=== PATIENT | female | born 1960 | race Caucasian/White ===

== ENCOUNTER 2019-09-13 16:05 | Inpatient (IN) | payer BC ==
[~2019-09-13] VITALS: Ht 170.2 cm; Wt 69.1 kg
[2019-09-13 17:05] LABS: BASOPHILS 0.2 % (0-2); EOSINOPHILS 0.3 % (0-7); HEMATOCRIT 37.7 % (36.0-48.0); HEMOGLOBIN 12.5 g/dL (12-16); IMMATURE GRANULOCYTES 0.2 % (0-5); LYMPHOCYTES 19.7 % (15-50); MCH 29.8 pg (26.0-34.0); MCHC 33.2 g/dL (31.0-37.0); MCV 89.8 fL (80.0-100.0); MEAN PLATELET VOLUME 9.9 fL (7.4-10.4); MONOCYTES 5.8 % (2-11); NEUTROPHILS 73.8 % (40-80); PLATELET COUNT 294 10x3/uL (130-400); RDW 12.7 % (11.5-14.5); WBC 12.8 10x3/uL (4.8-10.8)
[2019-09-13 17:17] LABS: CALC OSMOLALITY 272 mosm/kg (275-300); CALCIUM 9.1 mg/dL (8.5-10.1); CARBON DIOXIDE 28.2 mmol/L (21.0-32.0); CHLORIDE - SERUM 99 mmol/L (98-107); CREATININE - SERUM 0.8 mg/dL (0.6-1.3); GLUCOSE 107 mg/dL (74-106); POTASSIUM - SERUM 4.1 mmol/L (3.5-5.1); SODIUM 137 mmol/L (136-145); UREA NITROGEN 11 mg/dL (7-18); eGFR NON AFRICAN AMERICAN 78 mL/min (90-120)
[2019-09-13 17:24] LABS: ALBUMIN 3.7 g/dL (3.4-5.0); ALKALINE PHOSPHATASE 92 U/L (46-116); ALT (SGPT) 24 U/L (10-68); BILIRUBIN - TOTAL 0.22 mg/dL (0.2-1.3); PROTEIN - SERUM 7.8 g/dL (6.4-8.2)
--- NOTE | 2019-09-13 18:30 | NUR ---
FLU SWAB OBTAINED AND SENT TO THE LAB.
--- NOTE | 2019-09-13 19:30 | NUR ---
URINE SENT TO THE LAB.
[2019-09-13 19:56] LABS: APPEARANCE CLEAR (CLEAR); BILIRUBIN NEGATIVE (NEGATIVE); COLOR YELLOW (YELLOW); EPITHELIAL CELLS 0-5 /hpf (0-5); GLUCOSE NEGATIVE (NEGATIVE); KETONE SMALL mg/dL (NEGATIVE); NITRITE NEGATIVE (NEGATIVE); PROTEIN NEGATIVE (NEGATIVE); RED CELLS - URINE 0-5 /hpf (0-5); UROBILINOGEN NORMAL (NORMAL); WHITE CELLS - URINE 0-5 /hpf (NEGATIVE)
--- NOTE | 2019-09-13 22:20 | NUR ---
ADDED PATIENT TO TELE WAIT LIST
[2019-09-13 22:53] VITALS: BP 122/49; Ht 170.2 cm; Wt 69.1 kg
[2019-09-13] MEDS ORDERED: LEVOFLOXACIN500 MG PO (22:59)
[2019-09-14] VITALS: BP 106/59
[2019-09-14 00:21] VITALS: BP 117/68
[2019-09-14 05:08] VITALS: BP 119/63
[2019-09-14 05:37] LABS: CALC OSMOLALITY 282 mosm/kg (275-300); CARBON DIOXIDE 23.8 mmol/L (21.0-32.0); CHLORIDE - SERUM 105 mmol/L (98-107); CREATININE - SERUM 0.7 mg/dL (0.6-1.3); GLUCOSE 149 mg/dL (74-106); MAGNESIUM - SERUM 2.3 mg/dL (1.8-2.4); PHOSPHOROUS 3.8 mg/dL (2.5-4.9); POTASSIUM - SERUM 4.1 mmol/L (3.5-5.1); SODIUM 141 mmol/L (136-145); UREA NITROGEN 11 mg/dL (7-18); eGFR NON AFRICAN AMERICAN > 90 mL/min (90-120)
[2019-09-14 05:53] LABS: BASOPHILS 0 % (0-2); EOSINOPHILS 0 % (0-7); HEMOGLOBIN 11.4 g/dL (12-16); IMMATURE GRANULOCYTES 0.1 % (0-5); LYMPHOCYTES 11.9 % (15-50); MCH 29.1 pg (26.0-34.0); MCHC 32.6 g/dL (31.0-37.0); MCV 89.3 fL (80.0-100.0); MEAN PLATELET VOLUME 10.2 fL (7.4-10.4); PLATELET COUNT 275 10x3/uL (130-400); RBC 3.92 10x6/uL (4.00-5.40); RDW 12.8 % (11.5-14.5)
[2019-09-14 05:54] LABS: WBC 7.1 10x3/uL (4.8-10.8)
--- NOTE | 2019-09-14 07:44 | NUR ---
PATIENT RECIEVED RESTING IN BED WITH EYES OPEN, ALERT AND ORIENTED. ADMITTED FOR PNEUMONIA, RESPIRTATIONS REGULAR AND NON-LABORED BUT PATINET REPORTS SOME SHORTNESS OF BREATH WITH EXERTION. PREPORTS INFREQUENT DRY COUGH. CL IN REACH
[2019-09-14 08:23] VITALS: BP 122/69
--- NOTE | 2019-09-14 09:06 | NUR ---
TB SKIN TEST ADMINISTERED TO RIGHT FOREARM
[2019-09-14 12:29] VITALS: BP 131/70
[2019-09-14 17:08] VITALS: BP 115/66
--- NOTE | 2019-09-14 19:27 | NUR ---
PATIENT RESTING IN BED ON PHONE AND DENIES NEEDS AT THIS TIME. BED IN LOWEST POSITION AND CALL LIGHT WITHIN REACH. ENCOURAGED THE PATIENT TO CALL IF SHE HAS NEEDS. WILL CONTINUE TO MONITOR.
--- NOTE | 2019-09-14 23:38 | NUR ---
ADMINISTERED MEDS PER ORDERS. PATIENT REFUSED MIDNIGHT VITALS. PATIENT DENIES OTHER NEEDS AT THIS TIME. BED IN LOWEST POSITION AND CALL LIGHT WITHIN REACH. ENCOURAGED THE PATIENT TO CALL IF SHE HAS NEEDS. WILL CONTINUE TO MONITOR.
[2019-09-15 04:00] VITALS: BP 145/72
--- NOTE | 2019-09-15 07:44 | HP ---
PATIENT: PACO MONTES MEDICAL RECORD: [id number] ACCOUNT: [id number] LOCATION:[facility] [id number] : [birth year] ADMISSION DATE: 09/13/19 PCP: No PCP HISTORY AND PHYSICAL EXAMINATION REASON FOR ADMISSION: Cough, congestion, and fevers. HISTORY OF PRESENT ILLNESS: The patient is a 59-year-old female who states that she has had a sore throat and congestion, starting 09/03/2019. She ultimately went to an outpatient clinic in [place] 2 days prior to admission, she developed fever of 100.8 and increasing cough, congestion. They had taken a chest x-ray that did not give her the results and did not start antibiotics. She felt worse through the weekend with increasing cough, productive sputum, and fever to 101 and came to the ED for that reason. She is a breast cancer survivor and was concerned there might be something in her chest x-ray related to that. She denies diarrhea, nausea, or vomiting. She admits to some sharp pain in her right posterior chest with coughing. PAST MEDICAL HISTORY: Breast cancer in 2007, status post left lumpectomy and then bilateral mastectomy and reconstruction. She deferred tamoxifen at that time. No other medical history. PAST SURGICAL HISTORY: She had T and A, TAA-BSO, left lumpectomy breast with bilateral mastectomy and reconstruction. ALLERGIES: None mentioned except for Compazine. SOCIAL HISTORY: Nonsmoker, nondrinker. 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 FAMILY HISTORY: Father from lung cancer, had diabetes. Mother has had some skin cancers and essential hypertension. She has living one sister in good health. HOME MEDICATIONS: None. REVIEW OF SYSTEMS: CONSTITUTIONAL: Low-grade fever as mentioned above and fatigue and poor appetite. HEENT: No recent visual change, sinus congestion, or sore throat. RESPIRATORY: Expiratory cough and also sputum production. No hemoptysis. She has been mildly dyspneic on exertion. Pleuritic type pain, right posterior chest as well. GASTROINTESTINAL: No nausea, vomiting, change in stools or blood per rectum. He had colonoscopy recently, which she reports as normal. MUSCULOSKELETAL: No arthralgias. GENITOURINARY: No dysuria or incontinence. GYNECOLOGICAL: No vaginal bleeding. PSYCHIATRIC: Denies depressed mood. NEUROLOGICAL: No known history stroke, TIA, vascular headaches, or seizures. PHYSICAL EXAMINATION: GENERAL: Alert 59-year-old female in no acute distress except for coughing. The patient is alert and oriented. VITAL SIGNS: Temperature is 100.8 Fahrenheit orally, up to 101, heart rate is HISTORY AND PHYSICAL [id number] PACO MONTES 100, blood pressure of 112/74, respirations 18, and sat 95% on room air. HEENT: Eyes are clear. NECK: Supple, without bruits or masses. CHEST: She has fine crackles in the bases, right greater than left. Wheezes in the upper lobes on forced expiration. BREASTS: Symmetrical implants. ABDOMEN: Soft, nontender. No organomegaly. GENITOURINARY: Deferred. EXTREMITIES: No CC&E. NEUROLOGIC: Oriented to person, place, and time. Cranial nerves intact. Gait normal. INTEGUMENT: No rash. LABORATORY DATA: Shows a normal BMP and Liver functions are normal. Lactate is 1.0. White count 12.8 thousand with left shift. H and H is 12.5 and 37.7 respectively, and platelet count is 294,000. Chest x-ray showed granulomatous changes bilaterally. She has bilateral apical scarring. She has faint alveolar densities in the right middle lobe and bilateral bases suggesting pneumonia. ASSESSMENT: 1. Community-acquired pneumonia. 2. Granulomatous lung disease. 3. History of breast cancer. PLAN: The patient will be admitted for IV antibiotics. Cultures are appropriate. Pulmonary toilet. Further workup pending clinical course. TRANSINT:[id number] Voice Confirmation ID: [id number] DOCUMENT ID: [id number] BRANDON AMADOR MD at 0744 CC: [id number] DICTATION DATE: 09/14/19719 PEDIATRIC PHYSICIAN: 09/14/19 0828 ADM IN [facility] [address] [place] [address]
--- NOTE | 2019-09-15 07:56 | NUR ---
PATIENT RECIEVED RESTING IN BED, ALERT ORIENTED, DENIES PAIN OR SHORTNESS OF BREATH. NON-PRODUCTIVE COUGH REPORTED. CL IN REACH
[2019-09-15 08:30] VITALS: BP 178/87
--- NOTE | 2019-09-15 09:35 | MORECARE ---
CASE MANAGEMENT DISCHARGE SUMMARY PATIENT: PACO MONTES UNIT: [id number] ADM DATE: 09/13/19 AGE: 59 : 64 SEX: F ROOM/BED: D.0776 AUTHOR: EVELYN SMITH PHYSICIAN: REFERRING PHYSICIAN: BRANDON AMADOR MD DATE OF SERVICE: 09/15/19 Discharge Plan Patient Name: PACO MONTES Facility: [facility]:[place] : 1960 Planned Disposition: Home or Self Care Anticipated Discharge Date: Discharge Date: Expected LOS: Initial Reviewer: [email or web address] Initial Review Date: 09/13/2019 Generated: 09/15/19 10:35 am Comments DCP- Discharge Planning Updated by [email or web address]: Angelica Castaneda on 09/15/19 8:[address] Patient Name: PACO MONTES Admission Status: ER Accout number: [id number] Admission Date: 09-13-2019 : 1960 Admission Diagnosis: Attending: BRANDON AMDAOR Current LOS: 2 Anticipated DC Date: Planned Disposition: Home or Self Care Primary Insurance: [employer] O Discharge Planning Comments: CM met with patient to complete initial dc planning assessment. CM educated patient on the CM role and verbal consent given by patient to complete assessment. Patient lives in [place], [place] where she is independent with her care. At discharge patient plans to return home and feels this is a safe discharge. CM discussed availability of home health, rehab services, and medical equipment. She stated that her fianc? 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 Patient denied known discharge needs at this time. CM will continue to follow and will assist as needed with dc plans/needs. Reinforcing Bar Setter: Angelica Castaneda DCPIA - Discharge Planning Initial Assessment Updated by [email or web address]: Angelica Castaneda on 09/15/19 9:31 am * Is the patient Alert and Oriented? Yes * How many steps to enter\exit or inside your home? * PCP croatian * [facility] * Preadmission Environment Home Alone * ADLs Independent * Equipment None * List name and contact numbers for known caregivers / representatives who currently or will assist patient after discharge: SILVA HAMILTON [phone] * Verbal permission to speak to the caregivers and representatives has been obtained from the patient. N/A * Community resources currently utilized None * Additional services required to return to the preadmission environment? No * Can the patient safely return to the preadmission environment? Yes * Has this patient been hospitalized within the prior 30 days at any hospital? No Patient Name: PACO MONTES Page [id number] at 0935 All edits/amendments must be made on the electronic document DICTATION DATE: 09/15/19934 LAUNCH ENGINEER: HERMINIA 09/15/19934 RPT#: [id number] DC DATE: STATUS: ADM IN [facility] [address] [place] [address] END OF REPORT
[2019-09-15 12:48] VITALS: BP 174/85
[2019-09-15 16:43] VITALS: BP 140/65
--- NOTE | 2019-09-15 18:10 | NUR ---
PATIENT RESTING IN BED WITH NO NEEDS VOICED. CL IN REACH
--- NOTE | 2019-09-15 19:30 | NUR ---
PT SITTING UP IN BED WITHOUT DISTRESS, AOX4. IV RIGHT FA SL, FLUSHES EASILY. DENIES NEEDS AT THIS TIME. CL IN REACH, WILL CTM
[2019-09-15 20:00] VITALS: BP 150/82
[2019-09-16] VITALS: BP 133/43
[2019-09-16 04:00] VITALS: BP 111/56
[2019-09-16] MEDS ORDERED: ZITHROMAX250 MG PO (07:25)
[2019-09-16] MEDS ORDERED: ROBITUSSIN AC (WITH PO (07:25)
[2019-09-16] MEDS ORDERED: LEVAQUIN750 MG PO (07:26)
--- NOTE | 2019-09-16 08:27 | NUR ---
resting in bed, no distress noted, anxious to d/c today, sl in place
[2019-09-16 08:39] VITALS: BP 114/60
--- NOTE | 2019-09-16 09:15 | MORECARE ---
CASE MANAGEMENT DISCHARGE SUMMARY PATIENT: PACO MONTES UNIT: [id number] ADM DATE: 09/13/19 AGE: 59 : 64 SEX: F ROOM/BED: D.2206 AUTHOR: EVELYN SMITH PHYSICIAN: REFERRING PHYSICIAN: BRANDON AMADOR MD DATE OF SERVICE: 09/16/19 Discharge Plan Patient Name: PACO MONTES Facility: [facility]:[place] : 1960 Planned Disposition: Home or Self Care Anticipated Discharge Date: Discharge Date: Expected LOS: Initial Reviewer: [email or web address] Initial Review Date: 09/13/2019 Generated: 09/16/19 10:15 am Comments DCP- Discharge Planning Updated by [email or web address]: Angelica Castaneda on 09/16/19 8:[address] Patient Name: PACO MONTES Encounter No: [id number] : 1960 Primary Insurance: [employer] [facility] Anticipated DC Date: Planned Disposition: Home or Self Care External Planned Provider: : DCP follow-up note: Patient and family in agreement with discharge plan. No changes to plan. Case management will follow and assist as needed. Angelica Castaneda DCP- Discharge Planning Updated by [email or web address]: Angelica Castaneda on 09/15/19 8:[address] Patient Name: PACO MONTES Admission Status: ER Accout number: [id number] Admission Date: 09-13-2019 : 1960 Admission Diagnosis: Attending: BRANDON AMADOR Current LOS: 2 Anticipated DC Date: Planned Disposition: Home or Self Care Primary Insurance: [email or web address] [facility] Discharge Planning Comments: CM met with patient to complete initial dc planning assessment. CM educated patient on the CM role and verbal consent given by patient to complete assessment. Patient lives in [place], [place] where she is independent with her care. At discharge patient plans to return home and feels this is a safe discharge. CM discussed availability of home health, rehab services, and medical equipment. She stated that her fianc? lives in [place] and will be her taxicab driver home at [place]. Patient denied known discharge needs at this time. CM will continue to follow and will assist as needed with dc plans/needs. Psychiatrist: Angelica Castaneda DCPIA - Discharge Planning Initial Assessment Updated by [email or web address]: Angelica Castaneda on 09/15/19 9:31 am * Is the patient Alert and Oriented? Yes * How many steps to enter\exit or inside your home? * PCP [place] * [facility] * Preadmission Environment Home Alone * ADLs Independent * Equipment None * List name and contact numbers for known caregivers / representatives who currently or will assist patient after discharge: SILVA HAMILTON [phone] * Verbal permission to speak to the caregivers and representatives has been obtained from the patient. N/A * Community resources currently utilized None * Additional services required to return to the preadmission environment? No * Can the patient safely return to the preadmission environment? Yes * Has this patient been hospitalized within the prior 30 days at any hospital? No Last DP export: 09/15/19 8:35 am Patient Name: PACO MONTES Page [id number] at 0915 All edits/amendments must be made on the electronic document DICTATION DATE: 09/16/19914 EXPERIENCE SPECIALIST: HERMINIA 09/16/19914 RPT#: [id number] DC DATE: STATUS: ADM IN [facility] [address] [place] [address] END OF REPORT
--- NOTE | 2019-09-16 11:21 | NUR ---
1015 IV D/C, TIP INTACT, REVIEWED DC ORDERS, VOICED NO CONCERNS, TAKEN TO PRIVATE VEHICLE PER W/C
--- NOTE | 2019-09-18 07:45 | MORECARE ---
CASE MANAGEMENT DISCHARGE SUMMARY PATIENT: PACO MONTES UNIT: [id number] ADM DATE: 09/13/19 AGE: 59 : 64 SEX: F ROOM/BED: D.2200 AUTHOR: EVELYN SMITH PHYSICIAN: REFERRING PHYSICIAN: BRANDON AMADOR MD DATE OF SERVICE: 09/18/19 Discharge Plan Patient Name: PACO MONTES Facility: [facility]:[place] : 1960 Planned Disposition: Home or Self Care Anticipated Discharge Date: Discharge Date: 09/16/2019 Expected LOS: 0 Initial Reviewer: [email or web address] Initial Review Date: 09/13/2019 Generated: 09/18/19 8:45 am Comments DCP- Discharge Planning Updated by [email or web address]: Angelica Castaneda on 09/16/19 8:[address] Patient Name: PACO MONTES Encounter No: [id number] : 1960 Primary Insurance: [employer] [facility] Anticipated DC Date: Planned Disposition: Home or Self Care External Planned Provider: : DCP follow-up note: Patient and family in agreement with discharge plan. No changes to plan. Case management will follow and assist as needed. Angelica Castaneda DCP- Discharge Planning Updated by [email or web address]: Angelica Castaneda on 09/15/19 8:[address] Patient Name: PACO MONTES Admission Status: ER Accout number: [id number] Admission Date: 09-13-2019 : 1960 Admission Diagnosis: Attending: BRANDON AMADOR Current LOS: 2 Anticipated DC Date: Planned Disposition: Home or Self Care Primary Insurance: [employer] [facility] Discharge Planning Comments: CM met with patient to complete initial dc planning assessment. CM educated patient on the CM role and verbal consent given by patient to complete assessment. Patient lives in [place], [place] where she is independent with her care. At discharge patient plans to return home and feels this is a safe discharge. CM discussed availability of home health, rehab services, and medical equipment. She stated that her fianc? lives in [place] and will be her lifter driver home at [place]. Patient denied known discharge needs at this time. CM will continue to follow and will assist as needed with dc plans/needs. Cheese Sprayer: Angelica Castaneda DCPIA - Discharge Planning Initial Assessment Updated by [email or web address]: Angelica Castaneda on 09/15/19 9:31 am * Is the patient Alert and Oriented? Yes * How many steps to enter\exit or inside your home? * PCP icelandic * [facility] * Preadmission Environment Home Alone * ADLs Independent * Equipment None * List name and contact numbers for known caregivers / representatives who currently or will assist patient after discharge: SILVA HAMILTON [phone] * Verbal permission to speak to the caregivers and representatives has been obtained from the patient. N/A * Community resources currently utilized None * Additional services required to return to the preadmission environment? No * Can the patient safely return to the preadmission environment? Yes * Has this patient been hospitalized within the prior 30 days at any hospital? No Last DP export: 09/16/19 8:15 am Patient Name: PACO MONTES Page [phone] at 0745 All edits/amendments must be made on the electronic document DICTATION DATE: 09/18/1945 FAMILY MEDICINE RESIDENT: HERMINIA 09/18/1943 RPT#: [id number] DC DATE:09/16/19 STATUS: DIS IN [facility] [address] [place] [address] END OF REPORT
== END 2019-09-16 11:15 | disposition home or self-care (01) | DRG 195 ==
LOC: D.ER 16:05 → D.MS 20:36
PROVIDERS: Family Medicine; ADMIT Family Medicine; ATTEND Family Medicine
DX: J18.9 Pneumonia, unspecified organism (principal); Z85.3 Personal history of malignant neoplasm of breast; J98.4 Other disorders of lung